=== PATIENT | male | born 1955 | race Hispanic/Latino ===

== ENCOUNTER 2020-09-05 07:49 | Day surgery (SDC) | payer BC ==
[2020-09-03 13:25] VITALS: BP 132/83
[2020-09-03 13:53] LABS: BASOPHILS % (AUTO) 0.6 % (0.0-5.0); EOSINOPHILS % (AUTO) 2.1 % (0.0-8.0); HEMATOCRIT 48.8 % (42-54); MEAN CORPUSCULAR HEMOGLOBIN 29.3 pg (27.0-33.0); MEAN CORPUSCULAR HGB CONC 33.2 g/dL (32.0-36.0); MEAN CORPUSCULAR VOLUME 88.4 fL (79-99); MONOCYTES % (AUTO) 9.4 % (3.0-13.0); NEUTROPHILS % (AUTO) 56.3 % (40.0-77.0); PLATELET COUNT (AUTO) 234 K/uL (130-400); RED BLOOD CELL COUNT(AUTO) 5.52 MIL/uL (4.50-6.20); RED CELL DISTRIBUTION WIDTH 13.5 % (11.0-15.5)
[2020-09-03 14:01] LABS: POTASSIUM 4.5 mmol/L (3.5-5.1)
[~2020-09-05] VITALS: Ht 177.8 cm; Wt 83.9 kg
[2020-09-05] VITALS (18 sets, daily range): BP systolic 110–133; BP diastolic 65–86
[~2020-09-05 07:49] MED LIST: LISI10TA24 PO; METF-444 PO
[2020-09-05] MEDS ORDERED: 0.9%NACL 1000ML 1,000 ML IV ONE (08:59)
[2020-09-05] MEDS: CEFTRIAXONE 1G VIAL IVP ONE ×2 (09:16→11:40)
[2020-09-05] MEDS ORDERED: LIDOCAINE PF 100MG/5ML (2%) SYRINGE 5ML ONE (11:12)
[2020-09-05] MEDS ORDERED: SUCCINYLCHOLINE 200MG/10ML SYR ONE (11:12)
[2020-09-05] MEDS ORDERED: ONDANSETRON 4MG INJ ONE (11:12)
[2020-09-05] MEDS ORDERED: MIDAZOLAM HCL 1 MG/ML 2ML VIAL ONE (11:12)
[2020-09-05] MEDS ORDERED: DEXAMETHASONE SOD PHOSPHATE 10MG/ML 1ML VIAL ONE (11:12)
[2020-09-05] MEDS ORDERED: ROCURONIUM 10MG/1ML SYR 10 MG/ML ML ONE (11:13)
[2020-09-05] MEDS ORDERED: GLYCOPYRROLATE 1 MG/5 ML SYRINGE ONE (11:13)
[2020-09-05] MEDS ORDERED: NEOSTIGMINE 5MG/5ML SYR IV ONE (11:13)
[2020-09-05] MEDS ORDERED: PROPOFOL 10 MG/ML 20ML VIAL IV ONE (11:13)
[2020-09-05] MEDS ORDERED: FENTANYL CITRATE PF 50 MCG/1 ML 2ML VIAL ONE (11:13)
[2020-09-05] MEDS ORDERED: MEPERIDINE-PF 25 MG/ML SYG ONE (11:15)
[2020-09-05] MEDS ORDERED: EPHEDRINE SULFATE 50 MG/ML AMPULE ONE (11:53)
[2020-09-05] MEDS ORDERED: OPIUM/BELLADONNA ALKALOIDS 1 EACH SUPP.RECT RC ONE (12:09)
[2020-09-05] MEDS ORDERED: PHENAZOPYRIDINE HCL 200 MG TABLET ONE (13:14)
== END 2020-09-05 14:25 | disposition home or self-care (01) ==
LOC: DAH 07:49
PROVIDERS: ATTEND Urology
DX: C67.2 Malignant neoplasm of lateral wall of bladder (principal); Z20.828 Contact with and (suspected) exposure to other viral communicable diseases; R31.0 Gross hematuria; I10 Essential (primary) hypertension; E11.9 Type 2 diabetes mellitus without complications; Z79.899 Other long term (current) drug therapy; Z79.84 Long term (current) use of oral hypoglycemic drugs
CPT/HCPCS: 36415; 52240; 80048; 82948 ×2; 85025; 93005; A4215; A4216; A4221; A4222; A4223; A4344; A4354; A4358; A4600; A6260; C9803; J0330; J0696; J1100; J2001; J2175; J2250; J2405; J2704; J2710; J3010; J3490 ×2; J7030 ×2; J7120; U0003